=== PATIENT | female | born 1985 | race Caucasian/White ===

== ENCOUNTER 2018-04-03 12:30 | Emergency (ER) | payer OTHER ==
[2018-04-03 13:07] LABS: BASO % 0 % (0-3); EOS # 0.1 x10^3/uL (0.0-0.7); EOS % 1 % (0-3); HEMATOCRIT 40.2 % (36.0-47.0); HEMOGLOBIN 14.1 g/dL (12.0-15.5); LYMPH # 1.5 x10^3/uL (1.0-4.8); LYMPH % 23 % (24-48); MEAN CORPUSCULAR HEMOGLOBIN 30 pg (25-35); MEAN CORPUSCULAR HGB CONC 35 g/dL (31-37); MEAN CORPUSCULAR VOLUME 87 fL (79-100); MONO # 0.6 x10^3/uL (0.0-1.1); MONO % 9 % (0-9); NEUT # 4.6 x10^3uL (1.8-7.7); NEUT % 68 % (31-73); PLATELET COUNT 257 x10^3/uL (140-400); RED BLOOD COUNT 4.62 x10^6/uL (3.50-5.40); RED CELL DISTRIBUTION WIDTH 13.1 % (11.5-14.5); WHITE BLOOD COUNT 6.7 x10^3/uL (4.0-11.0)
--- NOTE | 2018-04-03 13:40 | PHYS DOC ---
Past History Past Medical History: No Pertinent History Past Surgical History: No Surgical History Smoking: Non-smoker Alcohol Use: None Drug Use: None Adult General Chief Complaint Chief Complaint: VAGINAL BLEEDING HPI HPI 33 year old female patient at 7 weeks of gestation with LMP of 2017 complaining of vaginal spotting since yesterday that getting worse today. Patient states she had positive home and [facility] test and has blood type of O negative. She denies abdominal pain, nausea and vomiting, dizziness and weakness. Review of Systems Review of Systems Constitutional: Denies fever or chills [] Eyes: Denies change in visual acuity, redness, or eye pain [] HENT: Denies nasal congestion or sore throat [] Respiratory: Denies cough or shortness of breath [] Cardiovascular: No additional information not addressed in HPI [] GI: Denies abdominal pain, nausea, vomiting, bloody stools or diarrhea [] : Denies dysuria or hematuria [] Musculoskeletal: Denies back pain or joint pain [] Integument: Denies rash or skin lesions [] Neurologic: Denies headache, focal weakness or sensory changes [] Endocrine: Denies polyuria or polydipsia [] All other systems were reviewed and found to be within normal limits, except as documented in this note. Allergies Allergies Allergies Coded Allergies Type Severity Reaction Last Updated Verified No Known Drug Allergies 04/03/18 No Physical Exam Physical Exam Constitutional: Well developed, well nourished, mild distress, non-toxic appearance. [] HENT: Normocephalic, atraumatic Eyes: PERRLA, EOMI, conjunctiva normal, no discharge. [] Neck: Normal range of motion, no tenderness, supple, no stridor. [] Cardiovascular:Heart rate regular rhythm, no murmur [] Lungs & Thorax: Bilateral breath sounds clear to auscultation [] Abdomen: Bowel sounds normal, soft, no tenderness, no masses, no pulsatile masses. Patient refuses vaginal exam.[] Skin: Warm, dry, no erythema, no rash. [] Back: No tenderness, no CVA tenderness. [] Extremities: No tenderness, no cyanosis, no clubbing, ROM intact, no edema. [] Neurologic: Alert and oriented X 3, normal motor function, normal sensory function, no focal deficits noted. [] Psychologic: Affect normal, judgement normal, mood normal. [] Current Patient Data Vital Signs Vital Signs Date Time Temp Pulse Resp B/P (MAP) Pulse Ox O2 Delivery O2 Flow Rate FiO2 04/03/18 12:30 98.4 89 16 98 Room Air Lab Results Laboratory Tests Test 04/03/18 12:31 04/03/18 12:52 POC Urine HCG, Qualitative hcg positive (Negative) White Blood Count 6.7 x10^3/uL (4.0-11.0) Red Blood Count 4.62 x10^6/uL (3.50-5.40) Hemoglobin 14.1 g/dL (12.0-15.5) Hematocrit 40.2 % (36.0-47.0) Mean Corpuscular Volume 87 fL (79-100) Mean Corpuscular Hemoglobin 30 pg (25-35) Mean Corpuscular Hemoglobin Concent 35 g/dL (31-37) Red Cell Distribution Width 13.1 % (11.5-14.5) Platelet Count 257 x10^3/uL (140-400) Neutrophils (%) (Auto) 68 % (31-73) Lymphocytes (%) (Auto) 23 % (24-48) L Monocytes (%) (Auto) 9 % (0-9) Eosinophils (%) (Auto) 1 % (0-3) Basophils (%) (Auto) 0 % (0-3) Neutrophils # (Auto) 4.6 x10^3uL (1.8-7.7) Lymphocytes # (Auto) 1.5 x10^3/uL (1.0-4.8) Monocytes # (Auto) 0.6 x10^3/uL (0.0-1.1) Eosinophils # (Auto) 0.1 x10^3/uL (0.0-0.7) Basophils # (Auto) 0.0 x10^3/uL (0.0-0.2) EKG EKG [] Radiology/Procedures Radiology/Procedures [] [address] [address] IMAGING REPORT Signed PATIENT: BERNADETTE BILL ACCOUNT: [id number] : 1985 LOCATION: ER AGE: 33 SEX: F EXAM STATUS: REG ER ORD. PHYSICIAN: RONI GUARDADO MD REASON: vaginal bleeding PROCEDURE: OB <14 WKS W/TV EXAM: Obstetrics sonogram. HISTORY: Vaginal bleeding. TECHNIQUE: Transabdominal and transvaginal sonographic imaging of the pelvis was performed. COMPARISON: None. FINDINGS: The uterus measures 8.9 x 6.0 x 4.4 cm and is retroverted. There is a fluid single intrauterine gestational sac. The mean sac diameter is 12 mm, corresponding with a gestational age of 6 weeks and 0 days. There is a pole with a crown-rump length of 9 mm. This corresponds with a gestational age of 6 weeks and 6 days. No cardiac activity is seen. There are several ovarian follicles. The ovaries demonstrate normal blood flow. There is no pelvic free fluid. IMPRESSION: 1. Single intrauterine fetus with a gestational age based on crown-rump length of 6 weeks and 6 days. No cardiac activity is seen. The absence of cardiac activity at the current crown-rump length measurement is consistent with intrauterine demise. Correlate with serial beta hCG levels. 2. Relatively small gestational sac size for the crown-rump length measurement. There is a 6 day measurement discrepancy. A mean sac diameter less than 5 mm greater than crown-rump length can be associated with early intrauterine demise. 3. Limited exam due to a retroverted uterus. Electronically signed by: Natalia Anton MD (04/03/2018 1:41 PM) [id number] DICTATED AND SIGNED BY: NATALIA ANTON MD DATE: 04/03/18 1329 CC: RONI GUARDADO MD; MANDY LIU CNM ~ Course & Med Decision Making Course & Med Decision Making Pertinent Labs and Imaging studies reviewed. (See chart for details) Evaluation of patient in ER showed 33-year-old female patient at 7 weeks of gestation complaining of vaginal spotting since yesterday. Patient had unremarkable physical exam. HCG level was 3190. OB ultrasound showed gestational sac with demise patient for about test results needs to follow up with her [facility]. Patient made an appointment with her [facility] for tomorrow. She instructed to return to ER if vaginal bleeding getting worse. Dragon Disclaimer Dragon Disclaimer This electronic medical record was generated, in whole or in part, using a voice recognition dictation system. Departure Departure: Impression: Primary Impression: demise Additional Impression: Blood type, Rh negative Disposition: HOME, SELF-CARE (At 1500) Condition: IMPROVED Referrals: MANDY LIU CNM (PCP) Patient Instructions: Intrauterine Demise Additional Instructions: Follow-up with your [facility] in 2 days Return to ER if not getting better Problem Qualifiers RONI GUARDADO MD April 03, 2018 13:40
--- NOTE | 2018-04-03 13:44 | RAD ---
EXAM: Obstetrics sonogram. HISTORY: Vaginal bleeding. TECHNIQUE: Transabdominal and transvaginal sonographic imaging of the pelvis was performed. COMPARISON: None. FINDINGS: The uterus measures 8.9 x 6.0 x 4.4 cm and is retroverted. There is a fluid single intrauterine gestational sac. The mean sac diameter is 12 mm, corresponding with a gestational age of 6 weeks and 0 days. There is a pole with a crown-rump length of 9 mm. This corresponds with a gestational age of 6 weeks and 6 days. No cardiac activity is seen. There are several ovarian follicles. The ovaries demonstrate normal blood flow. There is no pelvic free fluid. IMPRESSION: 1. Single intrauterine fetus with a gestational age based on crown-rump length of 6 weeks and 6 days. No cardiac activity is seen. The absence of cardiac activity at the current crown-rump length measurement is consistent with intrauterine demise. Correlate with serial beta hCG levels. 2. Relatively small gestational sac size for the crown-rump length measurement. There is a 6 day measurement discrepancy. A mean sac diameter less than 5 mm greater than crown-rump length can be associated with early intrauterine demise. 3. Limited exam due to a retroverted uterus. Electronically signed by: Natalia Anthony MD (04/03/2018 1:41 PM) [id number]
[2018-04-03 15:13] VITALS: BP 101/59
[2018-04-03 15:22] VITALS: BP 114/51
== END 2018-04-03 15:22 | disposition home or self-care (01) ==
LOC: ER 12:30
DX: O36.4XX0 Maternal care for intrauterine death, not applicable or unspecified (principal); Z67.91 Unspecified blood type, Rh negative; Z3A.01 Less than 8 weeks gestation of pregnancy
CPT/HCPCS: 36415; 36430; 76801; 76817; 81025; 84702; 85025; 86850; 86900; 86901; 99285; J2791